=== PATIENT | male | born 1995 | race Caucasian/White ===

== ENCOUNTER 2017-06-16 09:08 | Emergency (ER) | payer MEDICAID ==
[2017-06-16 09:53] LABS: APPEARANCE,URINE CLEAR; BILIRUBIN,URINE NEGATIVE (NEGATIVE); COLOR,URINE YELLOW; GLUCOSE, URINE NEGATIVE (NEGATIVE); KETONES,URINE NEGATIVE (NEGATIVE); LEUKOCYTE ESTERASE,URINE NEGATIVE (NEGATIVE); NITRITE,URINE NEGATIVE (NEGATIVE); PROTEIN,URINE NEGATIVE (NEGATIVE); URINE SPECIFIC GRAVITY 1.008; UROBILINOGEN,URINE NEGATIVE mg/dL (<2.0)
[2017-06-16] MEDS ORDERED: OXYCODONE-ACETAMINOPHEN 5-325 MG TABLET PO ONE (10:30)
[2017-06-16] MEDS ORDERED: CEPHALEXIN 500 MG CAPSULE PO ONE (10:30)
--- NOTE | 2017-06-16 10:37 | ER Document Report ---
ED GI/ - General Chief Complaint: Urinary Problem Stated Complaint: URINARY CONCERN Time Seen by Provider: 06/16/17 09:59 Mode of Arrival: Medic Information source: Parent Notes: Patient is a 21-year-old autistic male who presents to the ER today for urinary incontinence and foul smell. Father states that he has a history of a stricture and so occasionally they do have to straight cath him at home to get urine out. Dad states that he has been having to do this more frequently recently and patient is trying to crawl away from him whenever he is attempting to straight cath him. Dad states the urine has smelled very strong and has had a "weird odor." Dad states that they do have a urologist that they follow-up with but that he is "not sure he would want to do the surgery again." Dad denies that he has had any fevers. He states that the primary care provider gave him some Lortab pain medication that they have been taking once daily but that he thinks patient needs more pain medication as he gets very violent whenever he hurts and he has been lashing out on himself as well as parents. Dad states that it is "just because of the pain he is in." Dad says that he scratches up his arms as well as sometimes bites himself when he hurts. He has been doing this and has to bite brannon on both of his arms as well as multiple sores that he is picked on his arms and hands. Dad denies that he is had any vomiting or diarrhea. TRAVEL OUTSIDE OF THE [place] IN LAST 30 DAYS: No - Related Data Allergies/Adverse Reactions: amoxicillin [From Augmentin] Allergy (Verified 06/16/17 11:08) cefuroxime [From Ceftin] Allergy (Verified 06/16/17 11:08) clavulanic acid [From Augmentin] Allergy (Verified 06/16/17 11:08) Past Medical History - General Information source: Parent - Social History Smoking Status: Never Smoker Chew tobacco use (# tins/day): No Frequency of alcohol use: None Drug Abuse: None Family History: Reviewed & Not Pertinent Patient has suicidal ideation: No Patient has homicidal ideation: No Renal/ Medical History: Denies: Hx Peritoneal Dialysis Review of Systems - Review of Systems Constitutional: No symptoms reported EENT: No symptoms reported Cardiovascular: No symptoms reported Respiratory: No symptoms reported Gastrointestinal: No symptoms reported Genitourinary: See HPI Male Genitourinary: No symptoms reported Musculoskeletal: No symptoms reported Skin: No symptoms reported Hematologic/Lymphatic: No symptoms reported Neurological/Psychological: No symptoms reported Physical Exam - Vital signs Vitals: Temp Pulse Resp BP Pulse Ox 99.1 F 94 H 16 126/58 H 97 06/16/17 09:15 06/16/17 09:15 06/16/17 09:15 06/16/17 09:15 06/16/17 09:15 - Notes Notes: PHYSICAL EXAMINATION: GENERAL: Autistic, moaning, disheveled, but in no acute distress. HEAD: Atraumatic, normocephalic. EYES: Pupils equal round and reactive to light, extraocular movements intact, sclera anicteric, conjunctiva are normal. NECK: Normal range of motion, supple without lymphadenopathy LUNGS: CTAB and equal. No wheezes rales or rhonchi. HEART: Regular rate and rhythm without murmurs ABDOMEN: Soft, no apparent tenderness. No guarding, no rebound BACK: no vertebral tenderness, normal ROM GI/: no CVA tenderness EXTREMITIES: Normal range of motion, no pitting edema. No cyanosis. NEUROLOGICAL: Cranial nerves grossly intact. Normal sensory/motor exams. PSYCH: Normal mood, normal affect. SKIN: Warm, Dry, normal turgor, 2 bite brannon to right and left dorsal forearms, multiple sores that patient has picked and scratched apparent on dorsal hands and forearms Course - Re-evaluation Re-evalutation: 06/16/17 10:35 Urinalysis is not obvious for any infection today, however the room does smell of a very strong urinary odor and urine culture is pending at this time. I will start patient on Keflex as dad states that this always happens with UTIs. I will also provide patient with some pain medication. He is a large boy and dad states he does much better on Lortab. - Vital Signs Vital signs: Temp Pulse Resp BP Pulse Ox 97.8 F 67 16 99/45 L 98 06/16/17 11:32 06/16/17 11:32 06/16/17 11:32 06/16/17 11:32 06/16/17 11:32 Discharge - Discharge Clinical Impression: UTI symptoms Condition: Stable Disposition: HOME, SELF-CARE Additional Instructions: Push plenty of fluids. Return immediately for any new or worsening symptoms. Follow up with urologist, call tomorrow to make followup appointment. Follow up with urologist if symptoms do not resolve in 7 days. [facility] [employer] [facility] [address] [place], [place] [phone] [place] [facility] [address]. [place], [place] [phone] Prescriptions: Cephalexin Monohydrate [Keflex 500 mg Capsule] 500 mg PO Q6H 5 Days capsule Hydrocodone/Acetaminophen [[place] 10-325 Tablet] 1 each PO Q4 PRN #10 tablet PRN Reason: Referrals: DIAMOND ZENDEJAS, [Primary Care Provider] - Follow up as needed
[2017-06-16 11:32] VITALS: BP 99/45
== END 2017-06-16 11:25 | disposition home or self-care (01) ==
LOC: ER 09:08 → EDBD 09:08 → ER 11:25
DX: R39.198 Other difficulties with micturition (principal); Z79.899 Other long term (current) drug therapy
CPT/HCPCS: 81001; 87086; 99282

== ENCOUNTER 2017-08-06 05:41 | Emergency (ER) | payer MEDICAID ==
[2017-08-06 05:50] VITALS: BP 126/78
[2017-08-06] MEDS ORDERED: ONDANSETRON 4 MG TAB.RAPDIS PO ONE (06:32)
[2017-08-06] MEDS ORDERED: CEPHALEXIN 500 MG CAPSULE PO ONE (06:32)
--- NOTE | 2017-08-06 06:34 | ER Document Report ---
ED General - General Chief Complaint: Urinary Problem Stated Complaint: URINARY SYMPTOMS Time Seen by Provider: 08/06/17 06:14 Mode of Arrival: Ambulatory Information source: Patient Notes: 21-year-old male history of autism pica urinary stricture who is on Macrobid daily but gets self cath when he has urinary frequency or hesitancy presents with family with concerns of fever vomiting and urinary frequency. Patient had similar episode 2 months ago which was attributed to UTI was treated with Keflex and symptoms resolved. Family notes patient is hydrating well they have not noted him eating anything that would cause him to vomit TRAVEL OUTSIDE OF THE [place] IN LAST 30 DAYS: No - HPI Onset: Yesterday Onset/Duration: Sudden Quality of pain: No pain Severity: Mild Pain Level: Denies Associated symptoms: Fever, Nausea - Post tussive emesis, Vomiting, Other Exacerbated by: Denies Relieved by: Denies Similar symptoms previously: Yes Recently seen / treated by doctor: Yes - Had recent blood work - Related Data Allergies/Adverse Reactions: amoxicillin [From Augmentin] Allergy (Verified 06/16/17 11:08) cefuroxime [From Ceftin] Allergy (Verified 06/16/17 11:08) clavulanic acid [From Augmentin] Allergy (Verified 06/16/17 11:08) Past Medical History - Social History Smoking Status: Never Smoker Cigarette use (# per day): No Chew tobacco use (# tins/day): No Smoking Education Provided: No Frequency of alcohol use: None Family History: Reviewed & Not Pertinent Patient has suicidal ideation: No Patient has homicidal ideation: No Renal/ Medical History: Denies: Hx Peritoneal Dialysis Review of Systems - Review of Systems Notes: REVIEW OF SYSTEMS: CONSTITUTIONAL : Admits fever at home EENT: Denies eye, ear, throat, or mouth pain or symptoms. Denies nasal or sinus congestion or discharge. Denies throat, tongue, or mouth swelling or difficulty swallowing. CARDIOVASCULAR: Denies chest pain. Denies palpitations or racing or irregular heart beat. Denies ankle edema. RESPIRATORY: Admits to intermittent cough. GASTROINTESTINAL: Admits to vomiting after coughing GENITOURINARY: Admits to urinary frequency MUSCULOSKELETAL: Denies back or neck pain or stiffness. Denies joint pain or swelling. SKIN: Denies rash, lesions or sores. HEMATOLOGIC : Denies easy bruising or bleeding. LYMPHATIC: Denies swollen, enlarged glands. NEUROLOGICAL: Denies confusion or altered mental status. Denies passing out or loss of consciousness. Denies dizziness or lightheadedness. Denies headache. Denies weakness or paralysis or loss of use of either side. Denies problems with gait or speech. Denies sensory loss, numbness, or tingling. Denies seizures. PSYCHIATRIC: Denies anxiety or stress. Denies depression, suicidal ideation, or homicidal ideation. ALL OTHER SYSTEMS REVIEWED AND NEGATIVE. Dictation was performed using [email or web address] voice recognition software PHYSICAL EXAMINATION: GENERAL: Autistic male slightly agitated HEAD: Atraumatic, normocephalic. EYES: Pupils equal round and reactive to light, extraocular movements intact, sclera anicteric, conjunctiva are normal. ENT: Nares patent, oropharynx clear without exudates. Moist mucous membranes. NECK: Normal range of motion, supple without lymphadenopathy LUNGS: Breath sounds clear to auscultation bilaterally and equal. No wheezes rales or rhonchi. HEART: Regular rate and rhythm without murmurs patient's heart rate is noted to be 92 at rest but increases immediately when he jumps around ABDOMEN: Soft, nontender, nondistended abdomen. No guarding, no rebound. No masses appreciated. Musculoskeletal: Normal range of motion, no pitting or edema. No cyanosis. NEUROLOGICAL: Baseline mentation SKIN: Superficial bite brannon bilateral wrists no erythema concerning for infectious process infected hair follicle on the scrotum no abscess Physical Exam - Vital signs Vitals: Temp Pulse Resp BP Pulse Ox 97.9 F 114 H 20 126/78 H 98 08/06/17 05:49 08/06/17 05:49 08/06/17 05:49 08/06/17 05:49 08/06/17 05:49 Course - Re-evaluation Re-evalutation: 08/06/17 06:40 Given patient's presentation and history I did offer family straight cath IV fluids and blood work as well as IV antibiotics and medications, we discussed the risks and benefits of such, family prefers not to have this done at this time they state that he looks to be at his baseline and that it would be too much effort to do the straight cath and blood at this time, mother and father both prefer my other option of just treating symptomatically. I explained that doing such would mean that no cultures are obtained blood work is not obtained no definitive answers noted, they are okay with this stating that if symptoms worsen they will return. We discussed very strict return precautions and family is very happy with this plan stating they are happy with the care provided today as well After performing a Medical Screening Examination, I estimate there is LOW risk for ACUTE APPENDICITIS, BOWEL OBSTRUCTION, ACUTE CHOLECYSTITIS, PERFORATED DIVERTICULITIS, INCARCERATED HERNIA, PANCREATITIS, TESTICULAR TORSION or PERFORATED ULCER, thus I consider the discharge disposition reasonable. Also, there is no evidence or peritonitis, sepsis, or toxicity. I have reevaluated this patient multiple times and no significant life threatening changes are noted. The patient parents and I have discussed the diagnosis and risks, and we agree with discharging home with close follow-up with the understanding that symptoms and presentations can change. We also discussed returning to the Emergency Department immediately if new or worsening symptoms occur. We have discussed the symptoms which are most concerning (e.g., bloody stool, fever, changing or worsening pain, intractable vomiting - standard verbal up date) that necessitate immediate return. - Vital Signs Vital signs: Temp Pulse Resp BP Pulse Ox 97.9 F 114 H 20 126/78 H 98 08/06/17 05:49 08/06/17 05:49 08/06/17 05:49 08/06/17 05:49 08/06/17 05:49 Discharge - Discharge Clinical Impression: Autism, Hair follicle infection UTI (urinary tract infection) Qualifiers: Urinary tract infection type: acute cystitis Hematuria presence: without hematuria Qualified Code(s): N30.00 - Acute cystitis without hematuria Condition: Stable Disposition: HOME, SELF-CARE Instructions: Urinary Tract Infection ([facility]) Additional Instructions: Please return immediately if symptoms worsen or there are any concerns at all Prescriptions: Cephalexin Monohydrate [Keflex 500 mg Capsule] 500 mg PO BID 10 Days capsule Ondansetron [Zofran Odt 4 mg Tablet] 2 tab PO Q4H PRN #20 tab.rapdis PRN Reason: For Nausea/Vomiting Referrals: DIAMOND ZENDEJAS, [Primary Care Provider] - Follow up as needed
== END 2017-08-06 06:40 | disposition home or self-care (01) ==
LOC: ER 05:41
DX: N30.00 Acute cystitis without hematuria (principal); L08.89 Other specified local infections of the skin and subcutaneous tissue; Z79.2 Long term (current) use of antibiotics; F84.0 Autistic disorder; S60.872A Other superficial bite of left wrist, initial encounter; S60.871A Other superficial bite of right wrist, initial encounter; X58.XXXA Exposure to other specified factors, initial encounter; R05 Cough; R50.9 Fever, unspecified; Z88.0 Allergy status to penicillin; Z88.1 Allergy status to other antibiotic agents
CPT/HCPCS: 99283; S0119

== ENCOUNTER 2017-10-14 05:01 | Emergency (ER) | payer MEDICAID ==
[2017-10-14] MEDS ORDERED: NORMAL SALINE 1000 ML 1,000 ML IV ONE (07:41)
[2017-10-14] MEDS ORDERED: ONDANSETRON 4 MG TAB.RAPDIS PO ONE (07:42)
--- NOTE | 2017-10-14 07:48 | ER Document Report ---
ED General - General Chief Complaint: Sore Throat Stated Complaint: SORE THROAT Time Seen by Provider: 10/14/17 07:11 Mode of Arrival: Ambulatory Information source: Patient Notes: Patient presents with family who report that patient has been pointing to his throat as though it hurts him. Patient is also had nausea with vomiting 3 episodes today. Patient has had a cough that started yesterday. Patient has a history of autism and is nonverbal. Patient also has a history of urinary retention in which the family has to straight cath him periodically and he does have a history of occasional UTI. TRAVEL OUTSIDE OF THE [place] IN LAST 30 DAYS: No - HPI Onset: Yesterday Onset/Duration: Gradual Quality of pain: Achy Associated symptoms: Nonproductive cough, Nausea, Vomiting, Sore throat. denies : Fever Exacerbated by: Denies Relieved by: Denies Similar symptoms previously: Yes Recently seen / treated by doctor: No - Related Data Allergies/Adverse Reactions: amoxicillin [From Augmentin] Allergy (Verified 06/16/17 11:08) cefuroxime [From Ceftin] Allergy (Verified 06/16/17 11:08) clavulanic acid [From Augmentin] Allergy (Verified 06/16/17 11:08) Past Medical History - General Information source: Parent - Social History Smoking Status: Never Smoker Chew tobacco use (# tins/day): No Frequency of alcohol use: None Drug Abuse: None Lives with: Family Family History: Reviewed & Not Pertinent Patient has suicidal ideation: No Patient has homicidal ideation: No - Medical History Medical History: Other - Autism, pica Renal/ Medical History: Reports: Other - Urinary retention. Denies: Hx Peritoneal Dialysis Psychiatric Medical History: Reports: Hx Obsessive Compulsive Disorder Past Surgical History: Reports: Other - Foreign body congestion, removal Review of Systems - Review of Systems Constitutional: No symptoms reported. denies: Fever EENT: Throat pain Cardiovascular: No symptoms reported Respiratory: Cough. denies: Short of breath Gastrointestinal: Vomiting. denies: Abdominal pain Genitourinary: No symptoms reported Male Genitourinary: No symptoms reported Musculoskeletal: No symptoms reported Skin: No symptoms reported. denies: Rash Hematologic/Lymphatic: No symptoms reported Neurological/Psychological: No symptoms reported Physical Exam - Vital signs Vitals: Temp Pulse Resp BP Pulse Ox 99.6 F 139 H 18 122/93 H 96 10/14/17 05:07 06/16/18 05:07 10/14/17 05:07 10/14/17 05:07 10/14/17 05:07 Interpretation: Normal. No: Tachycardic - General General appearance: Lethargic In distress: None - HEENT Head: Normocephalic Ears: Normal External canal: Normal Nasal: Normal Mouth/Lips: Normal Mucous membranes: Dry Pharynx: No: Erythema, Tonsillar hypertrophy, Potential airway comprom. Neck: Normal, Supple. No: Lymphadenopathy - Respiratory Respiratory status: No respiratory distress Chest status: Nontender Breath sounds: Normal Chest palpation: Normal - Cardiovascular Rhythm: Regular. No: Tachycardia Heart sounds: S1 appreciated, S2 appreciated Murmur: No - Abdominal Inspection: Obese Distension: No distension Bowel sounds: Normal Tenderness: Nontender - Back Back: Normal, Nontender - Extremities General upper extremity: Normal inspection, Normal strength General lower extremity: Normal inspection, Normal strength - Neurological Neuro grossly intact: Yes - at pt baseline per family, pt nonverbal - Skin Skin Temperature: Warm Skin Moisture: Dry Skin Color: Pale Course - Re-evaluation Re-evalutation: 10/14/17 10:52 Patient with findings consistent with UTI, no concern for sepsis. Patient is not tachycardic. Patient has not had any vomiting since given antiemetic medication. Discussed results with parents, cultures are pending. Discussed worsening symptoms that patient should return immediately for. Family verbalized understanding and is agreeable with plan of care 10/14/17 11:21 Family states that patient spit up his antibiotic and did not actually vomit. Suspect that patient may be behaviorally not taking the medication. Will give a dose of IV Rocephin. Family states that he has had this medication in the past without adverse reaction. Will give family prescription for suppository Phenergan. Patient's color and appearance look improved from initial presentation. Patient smiling and tracks staff members with his eyes while in the room. - Vital Signs Vital signs: Temp Pulse Resp BP Pulse Ox 99.1 F 100 H 17 139/81 H 96 10/14/17 12:49 10/14/17 12:49 10/14/17 12:49 10/14/17 12:49 10/14/17 12:49 - Laboratory Result Diagrams: 10/14/17 08:36 10/14/17 09:35 Laboratory results interpreted by me: 10/14/17 10/14/17 10/14/17 08:36 09:15 09:35 Plt Count 477 H Sodium 147.3 H Chloride 108 H Glucose 111 H Direct Bilirubin 0.5 H AST 49 H Total Protein 8.4 H Urine Protein 30 H Urine Ketones 20 H Urine Nitrite POSITIVE H Ur Leukocyte Esterase MODERATE H Urine Ascorbic Acid 40 H Labs- Entire Visit 10/14/17 10/14/17 10/14/17 07:33 08:36 08:36 WBC 10.2 RBC 4.74 Hgb 14.5 Hct 43.0 MCV 91 MCH 30.7 MCHC 33.8 RDW 13.6 Plt Count 477 H Seg Neutrophils % 68.4 Lymphocytes % 22.1 Monocytes % 8.2 Eosinophils % 0.8 Basophils % 0.5 Absolute Neutrophils 7.0 Absolute Lymphocytes 2.2 Absolute Monocytes 0.8 Absolute Eosinophils 0.1 Absolute Basophils 0.1 Sodium Potassium Chloride Carbon Dioxide Anion Gap BUN Creatinine Est GFR ( Amer) Est GFR (Non-Af Amer) Glucose Hemoglobin A1c % Calcium Total Bilirubin Direct Bilirubin Neonat Total Bilirubin Neonat Direct Bilirubin Neonat Indirect Bili AST ALT Alkaline Phosphatase Total Protein Albumin Urine Color Urine Appearance Urine pH Ur Specific [place] Urine Protein Urine Glucose (UA) Urine Ketones Urine Blood Urine Nitrite Urine Bilirubin Urine Urobilinogen Ur Leukocyte Esterase Urine WBC (Auto) Urine RBC (Auto) Urine Bacteria (Auto) Urine Mucus (Auto) Urine Ascorbic Acid Monotest NEGATIVE Group A Strep Rapid NEGATIVE 10/14/17 10/14/17 10/14/17 08:36 09:15 09:35 WBC RBC Hgb Hct MCV MCH MCHC RDW Plt Count Seg Neutrophils % Lymphocytes % Monocytes % Eosinophils % Basophils % Absolute Neutrophils Absolute Lymphocytes Absolute Monocytes Absolute Eosinophils Absolute Basophils Sodium Cancelled Potassium Cancelled Chloride Cancelled Carbon Dioxide Cancelled Anion Gap Cancelled BUN Cancelled Creatinine Cancelled Est GFR ( Amer) Cancelled Est GFR (Non-Af Amer) Cancelled Glucose Cancelled Hemoglobin A1c % 5.5 Calcium Cancelled Total Bilirubin Cancelled Direct Bilirubin Cancelled Neonat Total Bilirubin Cancelled Neonat Direct Bilirubin Cancelled Neonat Indirect Bili Cancelled AST Cancelled ALT Cancelled Alkaline Phosphatase Cancelled Total Protein Cancelled Albumin Cancelled Urine Color KASIA Urine Appearance SLIGHTLY-CLOUDY Urine pH 5.0 Ur Specific [place] 1.024 Urine Protein 30 H Urine Glucose (UA) NEGATIVE Urine Ketones 20 H Urine Blood NEGATIVE Urine Nitrite POSITIVE H Urine Bilirubin NEGATIVE Urine Urobilinogen NEGATIVE Ur Leukocyte Esterase MODERATE H Urine WBC (Auto) 37 Urine RBC (Auto) 2 Urine Bacteria (Auto) 3+ Urine Mucus (Auto) MOD Urine Ascorbic Acid 40 H Monotest Group A Strep Rapid 10/14/17 09:35 WBC RBC Hgb Hct MCV MCH MCHC RDW Plt Count Seg Neutrophils % Lymphocytes % Monocytes % Eosinophils % Basophils % Absolute Neutrophils Absolute Lymphocytes Absolute Monocytes Absolute Eosinophils Absolute Basophils Sodium 147.3 H Potassium 4.6 Chloride 108 H Carbon Dioxide 23 Anion Gap 16 BUN 18 Creatinine 0.77 Est GFR ( Amer) > 60 Est GFR (Non-Af Amer) > 60 Glucose 111 H Hemoglobin A1c % Calcium 9.9 Total Bilirubin 0.5 Direct Bilirubin 0.5 H Neonat Total Bilirubin Not Reportable Neonat Direct Bilirubin Not Reportable Neonat Indirect Bili Not Reportable AST 49 H ALT 20 Alkaline Phosphatase 74 Total Protein 8.4 H Albumin 4.9 Urine Color Urine Appearance Urine pH Ur Specific [place] Urine Protein Urine Glucose (UA) Urine Ketones Urine Blood Urine Nitrite Urine Bilirubin Urine Urobilinogen Ur Leukocyte Esterase Urine WBC (Auto) Urine RBC (Auto) Urine Bacteria (Auto) Urine Mucus (Auto) Urine Ascorbic Acid Monotest Group A Strep Rapid - Diagnostic Test Radiology reviewed: Reports reviewed Discharge - Discharge Clinical Impression: Sore throat Vomiting Qualifiers: Vomiting type: unspecified Vomiting Intractability: non-intractable Nausea presence: unspecified Qualified Code(s): R11.10 - Vomiting, unspecified UTI (urinary tract infection) Qualifiers: Urinary tract infection type: site unspecified Hematuria presence: without hematuria Qualified Code(s): N39.0 - Urinary tract infection, site not specified Condition: Stable Disposition: HOME, SELF-CARE Instructions: Antinausea Medication ([facility]), Intravenous (IV) Fluids ([facility]), Sore Throat ([facility]), Trimethoprim-Sulfa ([facility]), Urinary Tract Infection ([facility]), Vomiting ([facility]) Additional Instructions: Return immediately for any new or worsening symptoms Followup with your primary care provider, call tomorrow to make a followup appointment Throat culture and urine culture pending, we will call if you need any different treatment Prescriptions: Ondansetron HCl [Zofran 4 mg Tablet] 1 - 2 tab PO Q6 PRN #15 tablet PRN Reason: Promethazine HCl [Phenergan 25 mg Supp.rect] 1 supp DC Q6H PRN #10 supp.rect PRN Reason: Sulfamethoxazole/Trimethoprim [Bactrim Ds Tablet] 1 each PO BID #20 tablet Forms: Special Work Note Referrals: DIAMOND ZENDEJAS DO [Primary Care Provider] - 10/16/17
--- NOTE | 2017-10-14 08:27 | RADIOLOGY REPORT (SQ) ---
EXAM DESCRIPTION: CHEST 2 VIEWS COMPLETED DATE/TIME: 10/14/2017 8:12 am REASON FOR STUDY: cough COMPARISON: None. EXAM PARAMETERS: NUMBER OF VIEWS: two views TECHNIQUE: Digital Frontal and Lateral radiographic views of the chest acquired. RADIATION DOSE: NA LIMITATIONS: Lordotic chest film. FINDINGS: LUNGS AND PLEURA: No opacities, masses or pneumothorax. No pleural effusion. MEDIASTINUM AND HILAR STRUCTURES: No masses or contour abnormalities. HEART AND VASCULAR STRUCTURES: Cardiac silhouette size accentuated by lordotic positioning BONES: No acute findings. HARDWARE: None in the chest. OTHER: No other significant finding. IMPRESSION: NO ACUTE RADIOGRAPHIC FINDING IN THE CHEST. TECHNICAL DOCUMENTATION: JOB ID: [id number] [employer]- All Rights Reserved Reading location - IP/workstation name: [email or web address]
[2017-10-14] MEDS ORDERED: LIDOCAINE 2% URO-JET 5 ML KIT MM ONE (08:39)
[2017-10-14 08:48] LABS: ABSOLUTE BASOPHILS # (AUTO) 0.1 10^3/uL (0.0-0.2); ABSOLUTE EOSINOPHILS # (AUTO) 0.1 10^3/uL (0.0-0.6); ABSOLUTE LYMPHOCYTES (AUTO) 2.2 10^3/uL (0.5-4.7); ABSOLUTE MONOCYTES (AUTO) 0.8 10^3/uL (0.1-1.4); BASOPHILS % (AUTO) 0.5 % (0-2); EOSINOPHILS % (AUTO) 0.8 % (0-6); HEMOGLOBIN 14.5 g/dL (13.5-17.0); LYMPHOCYTES % (AUTO) 22.1 % (13-45); MEAN CORPUSCULAR HEMOGLOBIN 30.7 pg (27.0-33.4); MEAN CORPUSCULAR HGB CONC 33.8 g/dL (32.0-36.0); MEAN CORPUSCULAR VOLUME 91 fl (80-97); MONOCYTES % (AUTO) 8.2 % (3-13); PLATELET COUNT 477 10^3/uL (150-450); RED BLOOD COUNT 4.74 10^6/uL (4.35-5.55); RED CELL DISTRIBUTION WIDTH 13.6 % (11.5-14.0); SEGMENTED NEUTROPHILS % (AUTO) 68.4 % (42-78); TOTAL CELLS COUNTED % (AUTO) 100 %; WHITE BLOOD COUNT 10.2 10^3/uL (4.0-10.5)
[2017-10-14] MEDS ORDERED: PROCHLORPERAZINE EDISYLATE INJ 10 MG/2 ML VIAL IV ONE (09:11)
[2017-10-14] MEDS ORDERED: PROCHLORPERAZINE EDISYLATE INJ 10 MG/2 ML VIAL ONE (09:33)
[2017-10-14 10:11] LABS: APPEARANCE,URINE SLIGHTLY-CLOUDY; BILIRUBIN,URINE NEGATIVE (NEGATIVE); COLOR,URINE AMBER; GLUCOSE, URINE NEGATIVE (NEGATIVE); KETONES,URINE 20 mg/dL (NEGATIVE); LEUKOCYTE ESTERASE,URINE MODERATE (NEGATIVE); NITRITE,URINE POSITIVE (NEGATIVE); PROTEIN,URINE 30 mg/dL (NEGATIVE); URINE SPECIFIC GRAVITY 1.024; UROBILINOGEN,URINE NEGATIVE mg/dL (<2.0)
[2017-10-14 10:17] LABS: ALANINE AMINOTRANSFERASE 20 U/L (10-40); ALBUMIN 4.9 g/dL (3.7-5.6); ALKALINE PHOSPHATASE 74 U/L (65-260); ANION GAP 16 (5-19); ASPARTATE AMINO TRANSFERASE 49 U/L (10-45); BILIRUBIN,DIRECT 0.5 mg/dL (0.0-0.4); BILIRUBIN,TOTAL 0.5 mg/dL (0.2-1.3); BLOOD UREA NITROGEN 18 mg/dL (7-20); CALCIUM 9.9 mg/dL (8.4-10.2); CARBON DIOXIDE 23 mmol/L (22-30); CHLORIDE 108 mmol/L (98-107); GLUCOSE 111 mg/dL (75-110); POTASSIUM 4.6 mmol/L (3.6-5.0); SODIUM 147.3 mmol/L (137-145); TOTAL PROTEIN 8.4 g/dL (6.3-8.2)
[2017-10-14] MEDS ORDERED: SULFAMETHOXAZOLE/TRIMETHOPRIM 800-160 MG TABLET PO ONE (10:53)
[2017-10-14] MEDS ORDERED: CEFTRIAXONE INJ 1000 MG VIAL IV ONE (11:20)
[2017-10-14 12:50] VITALS: BP 139/81
== END 2017-10-14 12:51 | disposition home or self-care (01) ==
LOC: ER 05:01
DX: J02.9 Acute pharyngitis, unspecified (principal); N39.0 Urinary tract infection, site not specified; R11.2 Nausea with vomiting, unspecified; R05 Cough; R23.1 Pallor; F84.0 Autistic disorder; Z88.0 Allergy status to penicillin; Z88.1 Allergy status to other antibiotic agents
CPT/HCPCS: 99283; 96361; 51701; 96375; 96365; 36415; 87070; 87086; 87880; 85025; 87088; 86308; 80053; 81001; 87186; 83036; 71046; S0119; J0780; J0696; J3490 ×2; J7030

== ENCOUNTER 2017-10-16 19:38 | Emergency (ER) | payer MEDICAID ==
--- NOTE | 2017-10-16 23:08 | ER Document Report ---
ED Medical Screen (RME) - General Chief Complaint: Nausea/Vomiting Stated Complaint: UNABLE TO KEEP DOWN MEDICINE/NOT DRINKING Time Seen by Provider: 10/16/17 23:02 Mode of Arrival: Wheelchair Information source: Parent Notes: Patient is a 21-year-old male with severe autism who presents in the presence of his parents. Parents report that patient was treated here recently for a urinary tract infection however patient has been unable to complete his antibiotics as patient has now developed a sore throat patient is unable to swallow the pills. Parents also reports that when patient was taking his pills at 11 AM this morning he vomited 1. Patient has had no other other episodes of vomiting, no diarrhea and has not had any fevers. Patient drinking a gingerale on my assessment. I have greeted and performed a rapid initial assessment of this patient. A comprehensive ED assessment and evaluation of the patient, analysis of test results and completion of the medical decision making process will be conducted by additional ED providers. Dictation of this chart was performed using voice recognition software; therefore, there may be some unintended grammatical errors. TRAVEL OUTSIDE OF THE [place] IN LAST 30 DAYS: No - Related Data Allergies/Adverse Reactions: amoxicillin [From Augmentin] Allergy (Verified 06/16/17 11:08) cefuroxime [From Ceftin] Allergy (Verified 06/16/17 11:08) clavulanic acid [From Augmentin] Allergy (Verified 06/16/17 11:08) Past Medical History - General Information source: Parent - Social History Chew tobacco use (# tins/day): No Frequency of alcohol use: None Drug Abuse: None Renal/ Medical History: Denies: Hx Peritoneal Dialysis Psychiatric Medical History: Reports: Hx Obsessive Compulsive Disorder, Other - Severe autism Past Surgical History: Reports: Other - Foreign body congestion, removal Review of Systems - Review of Systems Constitutional: No symptoms reported EENT: Throat pain Cardiovascular: No symptoms reported Respiratory: No symptoms reported Gastrointestinal: No symptoms reported Genitourinary: Other - Unknown as patient is unable to appropriately answer questions Musculoskeletal: No symptoms reported Hematologic/Lymphatic: No symptoms reported Physical Exam - Vital signs Vitals: Temp Pulse Resp BP Pulse Ox 98.0 F 63 18 101/90 H 96 10/16/17 19:51 10/16/17 19:51 10/16/17 19:51 10/16/17 19:51 10/16/17 19:51 - Notes Notes: PHYSICAL EXAMINATION: EYES: Pupils equal round and reactive to light, extraocular movements intact, sclera anicteric, conjunctiva are normal. ENT: Nares patent, oropharynx clear without exudates. Moist mucous membranes. NECK: Normal range of motion, supple without lymphadenopathy LUNGS: Breath sounds clear to auscultation bilaterally and equal. No wheezes rales or rhonchi. HEART: Regular rate and rhythm without murmurs Course - Vital Signs Vital signs: Temp Pulse Resp BP Pulse Ox 98.0 F 63 18 101/90 H 96 10/16/17 19:51 10/16/17 19:51 10/16/17 19:51 10/16/17 19:51 10/16/17 19:51 Doctor's Discharge - Discharge Referrals: DIAMOND ZENDEJAS DO [Primary Care Provider] - Follow up as needed
[2017-10-17] MEDS ORDERED: METOCLOPRAMIDE HCL INJ/PF 10 MG/2 ML SDV IV ONE (00:38)
[2017-10-17] MEDS ORDERED: NORMAL SALINE 1000 ML 1,000 ML IV ONE (00:38)
[2017-10-17] MEDS ORDERED: CEFTRIAXONE INJ 1000 MG VIAL IV ONE (01:25)
[2017-10-17 01:36] LABS: ABSOLUTE EOSINOPHILS # (AUTO) 0.2 10^3/uL (0.0-0.6); ABSOLUTE LYMPHOCYTES (AUTO) 3.5 10^3/uL (0.5-4.7); ABSOLUTE MONOCYTES (AUTO) 1.1 10^3/uL (0.1-1.4); BASOPHILS % (AUTO) 0.4 % (0-2); HEMATOCRIT 43.3 % (37.9-51.0); HEMOGLOBIN 14.3 g/dL (13.5-17.0); LYMPHOCYTES % (AUTO) 32.1 % (13-45); MEAN CORPUSCULAR HEMOGLOBIN 30.1 pg (27.0-33.4); MEAN CORPUSCULAR HGB CONC 33.1 g/dL (32.0-36.0); MEAN CORPUSCULAR VOLUME 91 fl (80-97); MONOCYTES % (AUTO) 10.5 % (3-13); PLATELET COUNT 506 10^3/uL (150-450); RED BLOOD COUNT 4.77 10^6/uL (4.35-5.55); RED CELL DISTRIBUTION WIDTH 13.3 % (11.5-14.0); TOTAL CELLS COUNTED % (AUTO) 100 %; WHITE BLOOD COUNT 10.9 10^3/uL (4.0-10.5)
[2017-10-17 01:51] LABS: BLOOD UREA NITROGEN 25 mg/dL (7-20); CALCIUM 10.8 mg/dL (8.4-10.2); GLUCOSE 98 mg/dL (75-110); POTASSIUM 4.3 mmol/L (3.6-5.0)
[2017-10-17 01:57] LABS: CARBON DIOXIDE 27 mmol/L (22-30); CHLORIDE 102 mmol/L (98-107); SODIUM 149.1 mmol/L (137-145)
[2017-10-17 02:00] LABS: ANION GAP 20 (5-19)
--- NOTE | 2017-10-17 02:50 | ER Document Report ---
ED General - General Chief Complaint: Nausea/Vomiting Stated Complaint: UNABLE TO KEEP DOWN MEDICINE/NOT DRINKING Time Seen by Provider: 10/16/17 23:02 Mode of Arrival: Wheelchair Notes: The patient is a 21-year-old male with autism, nonverbal at baseline who presents with vomiting and inability to tolerate the oral antibiotic which was prescribed for his urinary tract infection 3 days ago. The patient apparently has only taken 2 doses of the antibiotic and vomits all of the other doses back up. The parents note that he is able to tolerate some fluids but does have intermittent episodes of vomiting distinct from when he is taking antibiotics. He has a history of urinary tract infections in the past secondary to his incontinence at baseline. He has not had a fever, but parents do note that he seems somewhat more tired than usual. They do however note that since coming here to the hospital he has been acting much more like himself, pacing the waiting room which is a typical behavior for him. He has not yet followed up with his primary care doctor. Parents have tried Phenergan and Zofran at home with some improvement of the nausea and vomiting. Nothing seems to worsen his symptoms. He has a history of frequent vomiting and urinary tract infections in the past. TRAVEL OUTSIDE OF THE [place] IN LAST 30 DAYS: No - Related Data Allergies/Adverse Reactions: amoxicillin [From Augmentin] Allergy (Verified 06/16/17 11:08) cefuroxime [From Ceftin] Allergy (Verified 06/16/17 11:08) clavulanic acid [From Augmentin] Allergy (Verified 06/16/17 11:08) Past Medical History - General Information source: Parent - Social History Smoking Status: Never Smoker Chew tobacco use (# tins/day): No Frequency of alcohol use: None Drug Abuse: None Lives with: Parents Family History: Reviewed & Not Pertinent Patient has suicidal ideation: No Patient has homicidal ideation: No Renal/ Medical History: Denies: Hx Peritoneal Dialysis Psychiatric Medical History: Reports: Hx Obsessive Compulsive Disorder, Other - Severe autism Past Surgical History: Reports: Other - Foreign body congestion, removal Review of Systems - Review of Systems Notes: Constitutional: Negative for fever. HENT: Positive for sore throat. Eyes: Negative for visual changes. Cardiovascular: Negative for chest pain. Respiratory: Negative for shortness of breath. Gastrointestinal: Positive for vomiting Genitourinary: Positive for dysuria. Musculoskeletal: Negative for back pain. Skin: Negative for rash. Neurological: Negative for headaches, weakness or numbness. 10 point ROS negative except as marked above and in HPI. Physical Exam - Vital signs Vitals: Temp Pulse Resp BP Pulse Ox 98.0 F 63 18 101/90 H 96 10/16/17 19:51 10/16/17 19:51 10/16/17 19:51 10/16/17 19:51 10/16/17 19:51 Interpretation: Normal Notes: PHYSICAL EXAMINATION: GENERAL: Appears in no distress. HEAD: Atraumatic, normocephalic. EYES: Pupils equal round and reactive to light, extraocular movements intact, sclera anicteric, conjunctiva are normal. ENT: nares patent, oropharynx clear without exudates. Moist mucous membranes. NECK: Normal range of motion, supple without lymphadenopathy LUNGS: Breath sounds clear to auscultation bilaterally and equal. No wheezes rales or rhonchi. HEART: Regular rate and rhythm without murmurs ABDOMEN: Soft, nontender, normoactive bowel sounds. No guarding, no rebound. No masses appreciated. EXTREMITIES: Normal range of motion, no pitting or edema. No cyanosis. NEUROLOGICAL: No focal neurological deficits. Moves all extremities spontaneously and on command. PSYCH: Nonverbal, baseline per family SKIN: Warm, Dry, normal turgor, no rashes or lesions noted. Course - Re-evaluation Re-evalutation: 10/17/17 02:57 Presentation of an autistic 21-year-old male, nonverbal, who is apparently vomiting and/or refusing to take his antibiotic for his urinary tract infection at home. Culture from previous visit does show that it is positive for E. coli infection. Labs today are unchanged from prior without any significant deterioration of his renal function, no increase in the white blood cell count, and patient does appear overall well-hydrated on exam. His vitals are within normal limits without tachycardia or hypotension. He has received IV fluids, antiemetics and has tolerated fluids. He is also received a second dose of ceftriaxone and did receive one on his first visit. I have written for the patient to return to the emergency department in 24 hours for a nurse visit for another dose of intramuscular ceftriaxone to clear the infection. Family is very agreeable to this plan. At this time will discharge with return precautions and follow-up recommendations. Verbal discharge instructions given a the bedside and opportunity for questions given. Medication warnings reviewed. Patient is in agreement with this plan and has verbalized understanding of return precautions and the need for primary care follow-up in the next 24-72 hours. - Vital Signs Vital signs: Temp Pulse Resp BP Pulse Ox 99.7 F 63 18 101/90 H 96 10/17/17 02:33 10/16/17 19:51 10/16/17 19:51 10/16/17 19:51 10/16/17 19:51 - Laboratory Result Diagrams: 10/17/17 01:10 10/17/17 01:10 Laboratory results interpreted by me: 10/17/17 10/17/17 01:10 01:10 WBC 10.9 H Plt Count 506 H Sodium 149.1 H Anion Gap 20 H BUN 25 H Calcium 10.8 H Discharge - Discharge Clinical Impression: UTI (urinary tract infection) Qualifiers: Urinary tract infection type: acute pyelonephritis Qualified Code(s): N10 - Acute pyelonephritis Vomiting Qualifiers: Vomiting type: unspecified Vomiting Intractability: non-intractable Nausea presence: with nausea Qualified Code(s): R11.2 - Nausea with vomiting, unspecified Condition: Good Disposition: HOME, SELF-CARE Additional Instructions: Please follow-up with your child's doctor on Monday for an additional dose of intramuscular ceftriaxone. If your child cannot have the dose completed there he can return to the emergency department for his next dose. Alternatively if he becomes able to tolerate his oral antibiotic he could complete the oral antibiotic course. You may continue to give him Phenergan and Zofran that he have available at home as needed for nausea and vomiting. Please return if your child develops a fever greater than 100.4F, passes out, becomes lethargic, or has any other symptoms that are worrisome to you. Referrals: DIAMOND ZENDEJAS, [Primary Care Provider] - Follow up tomorrow
[2017-10-17 04:04] VITALS: BP 143/70
== END 2017-10-17 04:02 | disposition home or self-care (01) ==
LOC: ER 19:38
DX: N10 Acute pyelonephritis (principal); B96.20 Unspecified Escherichia coli [E. coli] as the cause of diseases classified elsewhere; R11.2 Nausea with vomiting, unspecified; F84.0 Autistic disorder; R32 Unspecified urinary incontinence; R53.83 Other fatigue; Z88.0 Allergy status to penicillin; Z88.1 Allergy status to other antibiotic agents; J02.9 Acute pharyngitis, unspecified
CPT/HCPCS: 99284; 96375; 96365; 36415; 87040; 87070; 87880; 85025; 80048; J2765; J0696; J7030

== ENCOUNTER 2017-10-18 18:07 | Emergency (ER) | payer MEDICAID ==
--- NOTE | 2017-10-18 19:04 | ER Document Report ---
ED General - General Mode of Arrival: Ambulatory Information source: Parent TRAVEL OUTSIDE OF THE [place] IN LAST 30 DAYS: No <TURONG PIZARRO - Last Filed: 10/18/17 19:29> <NOE NORIEGA - Last Filed: 10/18/17 22:25> - General Chief Complaint: Abnormal Lab Results Stated Complaint: ABNORMAL LAB Time Seen by Provider: 10/18/17 18:57 Notes: Patient is a 21 year old autistic male, non verbal at baseline presents to the emergency department accompanied by parents due to abnormal urine culture. Mother states the patient was seen and discharged in the emergency department on October 14, 2017 for strep throat. While in the emergency department a blood culture and catheter urine culture was preformed and patient was found to have a UTI. Rocephin IV was given and patient was prescribed Septra. On October 16, 2017 patient returned to the emergency department for nausea, vomiting, and decreased appetite and received IV Rocephin around 10/17/2017 at approximately 0200. Patient was instructed to come back for additional Rocephin a few days later. Today the patient saw his urologist to receive a catheter due to urinary retention. Mother states the patient used to get catheter frequently due to this problem. Urologist told mother the patient was constipated which caused his urinary retention and was instructed to stop Ditropan. Mother states while in office the patient was diaphoretic, clammy and sluggish so she proceeded to give the patient iced orange juice thinking the patient's blood sugar was low. She states after receiving the orange juice, patient was back to baseline. Mother states they received the results from the catheter urine culture from yesterday which showed the patient to have a multiple drug resistant E.coli infection. At bedside patient is at baseline according to mom. He is pacing, happy and playful. (TRUONG PIZARRO) The father reports that 2 years ago the patient was airlifted from [facility] to [place] to be treated for urosepsis. I do have a call in to [place] to speak with an infectious disease specialist at this time, and will relay that additional information so he can check previous records. (NEO NORIEGA) - Related Data Allergies/Adverse Reactions: amoxicillin [From Augmentin] Allergy (Verified 10/18/17 18:09) cefuroxime [From Ceftin] Allergy (Verified 10/18/17 18:09) clavulanic acid [From Augmentin] Allergy (Verified 10/18/17 18:09) Past Medical History - General Information source: Parent - Social History Smoking Status: Never Smoker Chew tobacco use (# tins/day): No Frequency of alcohol use: None Drug Abuse: None Family History: Reviewed & Not Pertinent Patient has suicidal ideation: No Patient has homicidal ideation: No Psychiatric Medical History: Reports: Hx Obsessive Compulsive Disorder Past Surgical History: Reports: Other - Foreign body ingestion, removal <TRUONG PIZARRO - Last Filed: 10/18/17 19:29> Review of Systems - Review of Systems Constitutional: No symptoms reported EENT: No symptoms reported Cardiovascular: No symptoms reported Respiratory: No symptoms reported Gastrointestinal: No symptoms reported Genitourinary: See HPI Male Genitourinary: No symptoms reported Musculoskeletal: No symptoms reported Skin: No symptoms reported Hematologic/Lymphatic: No symptoms reported Neurological/Psychological: No symptoms reported -: Yes All other systems reviewed and negative <TRUONG PIZARRO - Last Filed: 10/18/17 19:29> Physical Exam - General General appearance: Appears well, Alert, Other - Playful, pacing around the room which is baseline for patinet. - HEENT Head: Normocephalic, Atraumatic Eyes: Normal Conjunctiva: Normal Extraocular movements intact: Yes Pupils: PERRL Neck: Normal - Respiratory Respiratory status: No respiratory distress Chest status: Nontender Breath sounds: Normal Chest palpation: Normal - Cardiovascular Rhythm: Regular Heart sounds: Normal auscultation Murmur: No Friction rub: No Gallop: None auscultated - Abdominal Inspection: Obese Distension: No distension Bowel sounds: Normal Tenderness: Nontender Organomegaly: No organomegaly - Back Back: Normal - Extremities General upper extremity: Normal ROM General lower extremity: Normal ROM - Psychological Associated symptoms: Normal affect, Normal mood - Skin Skin Temperature: Warm Skin Moisture: Dry Skin Color: Normal <TRUONG PIZARRO - Last Filed: 10/18/17 19:29> <NOE NORIEGA - Last Filed: 10/18/17 22:25> - Vital signs Vitals: Pulse Resp BP Pulse Ox 93 H 18 140/88 H 95 10/18/17 18:15 10/18/17 18:15 10/18/17 18:15 10/18/17 18:15 - Neurological Notes: Patient is autistic. Mother states patient is behaving at baseline. (TRUONG PIZARRO) Course <TRUONG PIZARRO - Last Filed: 10/18/17 19:29> - Laboratory Result Diagrams: 10/18/17 21:10 10/18/17 21:10 - Consults Dr. Suero Time consulted: 20:05 Consulted provider: geovanna - Shad tracey at [facility]: History and physical exam was reviewed, including history of being seen at [facility] 2 years ago for urosepsis. Recommends against any treatment if the patient appears totally asymptomatic. Recommends against checking labs or doing cultures if the patient is totally asymptomatic. Lab work and cultures had previously been ordered at triage. <NOE NORIEGA - Last Filed: 10/18/17 22:25> - Re-evaluation Re-evalutation: 10/18/17 22:22 The cath urine today shows leukocyte esterase negative, nitrite negative, no bacteria. The urine is quite concentrated and there are only 3 WBCs with no epithelial cells. The patient's white blood cell count is not elevated and there is no shift. He is drinking fluids now, and has IV fluids running. His physical exam, and his behavior is at baseline for him according to the mother. He will be discharged home to be encouraged to continue to consume plenty of fluids. Mother was given copies of the CBCs, chemistries, and the urinalyses from the last few days to take to her primary care provider for their records. No further antibiotics will be given based on review of the records, current findings, and discussions with infectious disease department at [facility]. (NOE NORIEGA) - Vital Signs Vital signs: Temp Pulse Resp BP Pulse Ox 93 H 18 140/88 H 95 10/18/17 18:15 10/18/17 18:15 10/18/17 18:15 10/18/17 18:15 - Laboratory Laboratory results interpreted by me: 10/18/17 10/18/17 10/18/17 20:23 21:10 21:10 RBC 4.21 L Hgb 13.1 L Plt Count 478 H Sodium 147.3 H BUN 23 H Calcium 10.4 H Alkaline Phosphatase 64 L Urine Protein >=500 H Urine Blood SMALL H Urine Bilirubin SMALL H Urine Urobilinogen 4.0 H Discharge <TRUONG PIZARRO - Last Filed: 10/18/17 19:29> <NOE NORIEGA - Last Filed: 10/18/17 22:25> - Discharge Clinical Impression: Drug (multiple) resistant infection, Autism Condition: Stable Disposition: HOME, SELF-CARE Additional Instructions: The urine today does not show any signs of infection. Encourage your son to continue to drink plenty of fluids. Take the copies of the lab work to your sons primary care provider for them to keep as part of their permanent record. RETURN TO THE EMERGENCY ROOM IF ANY NEW OR WORSENING SYMPTOMS. Referrals: DIAMOND ZENDEJAS DO [Primary Care Provider] - Follow up tomorrow Scribe Attestation: 10/18/17 22:25 I personally performed the services described in the documentation, reviewed and edited the documentation which was dictated to the scribe in my presence, and it accurately records my words and actions. (NOE NORIEGA) Scribe Documentation - Scribe Written by Gioe:: Nisha Schuler, 10/18/2017 19:36 acting as scribe for :: Ernestine <TRUONG PIZARRO - Last Filed: 10/18/17 19:29>
[2017-10-18] MEDS ORDERED: NORMAL SALINE 1000 ML 1,000 ML IV ONE (20:00)
[2017-10-18 20:44] LABS: APPEARANCE,URINE SLIGHTLY-CLOUDY; BILIRUBIN,URINE SMALL (NEGATIVE); GLUCOSE, URINE NEGATIVE (NEGATIVE); KETONES,URINE NEGATIVE (NEGATIVE); LEUKOCYTE ESTERASE,URINE NEGATIVE (NEGATIVE); NITRITE,URINE NEGATIVE (NEGATIVE); PROTEIN,URINE >=500 mg/dL (NEGATIVE); URINE SPECIFIC GRAVITY 1.039
[2017-10-18 20:47] LABS: COLOR,URINE YELLOW
[2017-10-18 21:26] LABS: ABSOLUTE BASOPHILS # (AUTO) 0.1 10^3/uL (0.0-0.2); ABSOLUTE EOSINOPHILS # (AUTO) 0.5 10^3/uL (0.0-0.6); ABSOLUTE LYMPHOCYTES (AUTO) 3.9 10^3/uL (0.5-4.7); ABSOLUTE NEUT (AUTO) 4.7 10^3/uL (1.7-8.2); BASOPHILS % (AUTO) 0.8 % (0-2); EOSINOPHILS % (AUTO) 4.6 % (0-6); HEMATOCRIT 38.1 % (37.9-51.0); HEMOGLOBIN 13.1 g/dL (13.5-17.0); LYMPHOCYTES % (AUTO) 38.8 % (13-45); MEAN CORPUSCULAR HEMOGLOBIN 31.1 pg (27.0-33.4); MEAN CORPUSCULAR HGB CONC 34.4 g/dL (32.0-36.0); MEAN CORPUSCULAR VOLUME 91 fl (80-97); MONOCYTES % (AUTO) 9.5 % (3-13); PLATELET COUNT 478 10^3/uL (150-450); RED BLOOD COUNT 4.21 10^6/uL (4.35-5.55); RED CELL DISTRIBUTION WIDTH 13.1 % (11.5-14.0); SEGMENTED NEUTROPHILS % (AUTO) 46.3 % (42-78); TOTAL CELLS COUNTED % (AUTO) 100 %; WHITE BLOOD COUNT 10.2 10^3/uL (4.0-10.5)
[2017-10-18 21:34] LABS: ALANINE AMINOTRANSFERASE 39 U/L (10-40); ALBUMIN 5.1 g/dL (3.7-5.6); ALKALINE PHOSPHATASE 64 U/L (65-260); ANION GAP 16 (5-19); ASPARTATE AMINO TRANSFERASE 30 U/L (10-45); BILIRUBIN,DIRECT 0.4 mg/dL (0.0-0.4); BILIRUBIN,TOTAL 0.5 mg/dL (0.2-1.3); BLOOD UREA NITROGEN 23 mg/dL (7-20); CALCIUM 10.4 mg/dL (8.4-10.2); CARBON DIOXIDE 26 mmol/L (22-30); CHLORIDE 105 mmol/L (98-107); GLUCOSE 88 mg/dL (75-110); POTASSIUM 4.5 mmol/L (3.6-5.0); SODIUM 147.3 mmol/L (137-145); TOTAL PROTEIN 8.2 g/dL (6.3-8.2)
[2017-10-18] MEDS ORDERED: LORAZEPAM INJ 2 MG/1 ML VIAL IV ONE (22:51)
[2017-10-18 23:33] VITALS: BP 152/101
== END 2017-10-18 23:33 | disposition home or self-care (01) ==
LOC: ER 18:07
DX: N39.0 Urinary tract infection, site not specified (principal); B96.20 Unspecified Escherichia coli [E. coli] as the cause of diseases classified elsewhere; Z16.30 Resistance to unspecified antimicrobial drugs; F84.0 Autistic disorder; Z88.0 Allergy status to penicillin; Z88.1 Allergy status to other antibiotic agents
CPT/HCPCS: 99283; 96361; 51701; 96374; 36415; 87040; 87086; 85025; 80053; 81001; J2060; J7030

== ENCOUNTER 2017-10-19 17:59 | Emergency (ER) | payer MEDICAID ==
[2017-10-19] MEDS ORDERED: DIPHENHYDRAMINE HCL 50 MG/ML VIAL IM ONE (18:53)
[2017-10-19] MEDS ORDERED: LORAZEPAM INJ 2 MG/1 ML VIAL IM ONE (18:53)
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
[2017-10-19] MEDS ORDERED: HALOPERIDOL LACTATE INJ 5 MG/1 ML VIAL IM ONE (20:04)
[2017-10-19] MEDS: RINGERS SOLUTION,LACTATED 1,000 ML IV PRN ×2 (20:59→22:48)
[2017-10-19 21:05] LABS: ABSOLUTE EOSINOPHILS # (AUTO) 0.7 10^3/uL (0.0-0.6); ABSOLUTE LYMPHOCYTES (AUTO) 3.4 10^3/uL (0.5-4.7); ABSOLUTE MONOCYTES (AUTO) 0.7 10^3/uL (0.1-1.4); ABSOLUTE NEUT (AUTO) 3.2 10^3/uL (1.7-8.2); BASOPHILS % (AUTO) 0.4 % (0-2); EOSINOPHILS % (AUTO) 8.7 % (0-6); HEMATOCRIT 33.4 % (37.9-51.0); HEMOGLOBIN 11.2 g/dL (13.5-17.0); LYMPHOCYTES % (AUTO) 42.7 % (13-45); MEAN CORPUSCULAR HEMOGLOBIN 30.5 pg (27.0-33.4); MEAN CORPUSCULAR HGB CONC 33.5 g/dL (32.0-36.0); MEAN CORPUSCULAR VOLUME 91 fl (80-97); MONOCYTES % (AUTO) 8.5 % (3-13); PLATELET COUNT 366 10^3/uL (150-450); RED BLOOD COUNT 3.66 10^6/uL (4.35-5.55); RED CELL DISTRIBUTION WIDTH 13.3 % (11.5-14.0); SEGMENTED NEUTROPHILS % (AUTO) 39.7 % (42-78); TOTAL CELLS COUNTED % (AUTO) 100 %
[2017-10-19 21:22] LABS: ANION GAP 15 (5-19); BLOOD UREA NITROGEN 17 mg/dL (7-20); CALCIUM 9.7 mg/dL (8.4-10.2); CARBON DIOXIDE 26 mmol/L (22-30); CHLORIDE 106 mmol/L (98-107); GLUCOSE 85 mg/dL (75-110); POTASSIUM 3.9 mmol/L (3.6-5.0)
--- NOTE | 2017-10-19 21:30 | RADIOLOGY REPORT (SQ) ---
EXAM DESCRIPTION: HAND LEFT 2 VIEWS COMPLETED DATE/TIME: 10/19/2017 9:19 pm REASON FOR STUDY: injury COMPARISON: None. EXAM PARAMETERS: NUMBER OF VIEWS: Two view. TECHNIQUE: AP and lateral radiographic images acquired of the left hand. LIMITATIONS: None. FINDINGS: MINERALIZATION: Normal. BONES: No acute fracture or dislocation. No worrisome bone lesions. JOINTS: No effusions. SOFT TISSUES: No soft tissue swelling. No foreign body. OTHER: No other significant finding. IMPRESSION: NEGATIVE STUDY OF THE LEFT HAND. NO RADIOGRAPHIC EVIDENCE OF ACUTE INJURY. TECHNICAL DOCUMENTATION: JOB ID: [id number] [employer]- All Rights Reserved Reading location - IP/workstation name: [email or web address]
[2017-10-19] MEDS ORDERED: LORAZEPAM INJ 2 MG/1 ML VIAL IV ONE (21:54)
[2017-10-19 23:35] LABS: APPEARANCE,URINE CLEAR; BILIRUBIN,URINE NEGATIVE (NEGATIVE); COLOR,URINE COLORLESS; GLUCOSE, URINE NEGATIVE (NEGATIVE); KETONES,URINE NEGATIVE (NEGATIVE); LEUKOCYTE ESTERASE,URINE NEGATIVE (NEGATIVE); NITRITE,URINE NEGATIVE (NEGATIVE); PROTEIN,URINE NEGATIVE (NEGATIVE); URINE SPECIFIC GRAVITY 1.003
== END 2017-10-20 01:15 | disposition home or self-care (01) ==
LOC: ER 17:59
PROC: 0HQGXZZ Repair Left Hand Skin, External Approach (ICD-10-PCS; principal; 2017-10-19)
DX: F84.0 Autistic disorder (principal); S61.219A Laceration without foreign body of unspecified finger without damage to nail, initial encounter; W22.8XXA Striking against or struck by other objects, initial encounter; Z91.14 Patient's other noncompliance with medication regimen; F91.1 Conduct disorder, childhood-onset type; R45.1 Restlessness and agitation
CPT/HCPCS: 12001; G0168; 36415; 51701; 80048; 81001; 85025; 87086; 96361; 96372; 96374; 99284; J1200; J1630; J2060; J7120